=== PATIENT | male | born 1995 | race Caucasian/White ===

== ENCOUNTER 2023-04-04 21:27 | Emergency (ER) | payer OTHER, SELFPAY ==
[2023-04-04] VITALS (7 sets, daily range): BP systolic 123–158; BP diastolic 65–116; PULSE 77–93; RESP 15–30; TEMP 36.6; O2SAT 96–100; BMI 30.4
--- NOTE | 2023-04-04 22:02 | EDS_ITS ---
HPI History of Present Illness Chief Complaint: Lower Extremity Injury PFSH PFS Medical History no medical history Home Medications oxycodone 5 mg capsule 5 mg PO Q6H PRN pain 7 days #28 caps 04/04/23 [Rx Last Taken Unknown] Allergy/AdvReac Type Severity Reaction Status Date / Time No Known Allergies Allergy Verified 04/04/23 21:33 Surgical History no surgical history Social History Smoking Status: Never smoker EXAM Physical Exam Const Vital Signs: 04/04/23 21:30 04/04/23 22:37 04/04/23 22:55 Temperature 97.8 F Temperature Source Temporal Pulse Rate 93 77 Pulse Rate [1 (Initial Baseline)] 77 Pulse Rate [2] 87 Pulse Rate [3] 81 Respiratory Rate 18 16 Respiratory Rate [1 (Initial Baseline)] 20 H Respiratory Rate [2] 30 H Respiratory Rate [3] 20 H Blood Pressure 123/112 H 138/104 H Blood Pressure [1 (Initial Baseline)] 158/109 H Blood Pressure [2] 157/116 H Blood Pressure [3] 146/112 H Blood Pressure Mean 115 Pulse Ox 96 98 Oxygen Delivery Method Room Air Non-Rebreather Oxygen Delivery Method [1 (Initial Baseline)] Nasal Cannula Oxygen Delivery Method [2] Nasal Cannula Oxygen Delivery Method [3] Nasal Cannula Oxygen Flow Rate (L/min) 15 Oxygen Flow Rate (L/min) [1 (Initial Baseline)] 2 Oxygen Flow Rate (L/min) [2] 2 Oxygen Flow Rate (L/min) [3] 2 04/04/23 23:11 04/04/23 23:16 04/04/23 23:21 Temperature Temperature Source Pulse Rate Pulse Rate [1 (Initial Baseline)] Pulse Rate [2] Pulse Rate [3] Respiratory Rate Respiratory Rate [1 (Initial Baseline)] Respiratory Rate [2] Respiratory Rate [3] Blood Pressure Blood Pressure [1 (Initial Baseline)] Blood Pressure [2] Blood Pressure [3] Blood Pressure Mean Pulse Ox Oxygen Delivery Method Room Air Room Air Room Air Oxygen Delivery Method [1 (Initial Baseline)] Oxygen Delivery Method [2] Oxygen Delivery Method [3] Oxygen Flow Rate (L/min) Oxygen Flow Rate (L/min) [1 (Initial Baseline)] Oxygen Flow Rate (L/min) [2] Oxygen Flow Rate (L/min) [3] MDM MDM MDM Narrative Medical decision making narrative: HISTORY OF PRESENT ILLNESS: 27-year-old male here with right leg injury. Patient statesConcern for allergic reaction he was playing basketball. Notes he jumped and land on someone's foot. Injuring his right leg. REVIEW OF SYSTEMS: Pertinent positives: Right leg pain Pertinent negatives: Numbness tingling, loss of sensation PHYSICAL EXAM: Nursing triage notes reviewed, Vital signs reviewed Constitutional: please see mdm HENT: MMM Eyes: Pupils equal round and reactive to light, Extraocular muscles intact Neck: No stridor, no JVD, full neck ROM Lungs: Clear to auscultation, No wheezing or rales. No increased work of breathing, no conversational dyspnea, no accessory muscle use, no nasal flaring. No respiratory distress noted Heart: Regular rate and rhythm, No murmurs, No rubs and No gallops, 2+ distal pulses (radial, femoral, posterior tibial) in all extremities Abdomen: Soft, there is no tenderness, rigidity, rebound or guarding, no obvious peritoneal signs, no palpable pulsatile abdominal masses, no auscultated abdominal bruit : No CVAT Extremities: Obvious deformity to the midshaft of the right tibia, there is no obvious open fracture, no bony fragments, Neuro: Intact sensation L1-S1 dermatomal distributions. Intact 5/5 strength in hip flexion (T12-L3). Knee extension (L2-L4). Ankle dorsiflexion (L4-L5). Ankle plantar flexion (S1). Great toe extension (L5). 2+ patellar and Achilles DTRs. Skin: No obvious open fracture MEDICAL DECISION MAKING: Chief Complaint: Right leg pain External records reviewed: No recent [facility] imaging of the involved extremity Factors affecting care: none Social determinants of health: none History obtained from others: none Consults: none [facility] Narrative: The patient was hemodynamically stable, afebrile, nontoxic-appearing. Right lower extremity is neurovascular intact with no signs of vascular compromise. There were no signs of open fracture. I considered the following differential diagnosis: Tib-fib fracture dislocation ALL IMAGES (IF OBTAINED) HAVE BEEN PERSONALLY REVIEWED AND INTERPRETED BY MYSELF. X-ray of the patient's right lower extremity was read and reviewed myself shows obvious tib-fib fracture with significant displacement and angulation. Procedural sedation, fracture reduction procedure note: The procedure was performed by myself. Intra-Service Time: 30 minutes Indication: Completion of a potentially painful procedure. Pre-sedation Evaluation: Patient was evaluated at 10:45 PM, ASA class I, Mallampati score of 1 Patient is an appropriate candidate for procedural sedation. The risks of sedation were discussed with the patient and/or legal guardian. A time out was completed. The patient was reevaluated immediately prior to initiation of sedation. IV access established. Normal saline bolus was given, Zofran was given. The patient was sedated with propofol, 1 mg/kg or 120 mg The patient was monitored with continuous pulse oximetry, traffic monitor specialist, and capnography. The patient protected their airway well, with vital signs remaining stable throughout the duration of the procedure. There were no complications and no significant hypoxemia. I remained at the bedside for the sedation. I provided 30 minutes of intra-service time. Post sedation evaluation (11:15pm) : Patient was alert and cooperative, hemodynamically stable with appropriate respiratory status, temperature and pain control without ongoing nausea and vomiting. Strict return precautions were discussed in terms of compartment syndrome including increasing pain, pallor, pulselessness, poikilothermia, paresthesias, paralysis. Patient was ordered to be nonweightbearing. Crutches were provided. Close Orthopedic follow-up arranged. The patient and/or family, caregivers express understanding. The patient and/or family, caregivers agrees with the plan. Shared decision making: I will have a discussion with the patient and or visitors regarding risk/benefits of further testing or admission. They will be made aware of of the risk/benefits inherent in this decision they will be given the opportunity to voice understanding. Total critical care time today provided was at least 0 minutes. This excludes separately billable procedures. Critical care time (if documented) is secondary to the patient having high probability of clinically significant/life threatening deterioration in the patient's condition which required my urgent intervention. Impression: 1. Right tib-fib fracture Dispo: Discharge Radiography Diagnostic Testing: Clinical Impression(s) from Imaging Studies Tibia/Fibula X-Ray 04/04/23 22:24 IMPRESSION: Displaced fractures involving the distal tibial and fibular shafts as described. Electronically Signed: Roxanne Lynch MD at 22:43 EDT , Discharge Plan Triage Chief Complaint: Lower Extremity Injury ED Provider: Conrado De La Rosa Dx/Rx/DC Orders Instructions: ED Fracture, Lower Extremity Prescriptions: New oxycodone 5 mg capsule 5 mg PO Q6H PRN (Reason: pain) 7 Days Qty: 28 0RF Stand Alone Forms: ED Work / School Excuse Primary Care Provider: Ray Sifuentes Referrals: Andrew Dobson MD [Med Staff - Active Staff] - Activity Restrictions/Additional Instructions: Thank you for trusting us with your care today! Please take Tylenol (2 pills, 650 mg), ibuprofen (2 pills, 400 mg) every 6 hours as needed for pain and fever control. If this does not control your pain. Please take oxycodone as prescribed. Please look out for signs of increasing pain, discoloration, coolness to touch, difficulty moving, numbness or tingling as these are signs of increased compartment pressure will require you to return to the emergency department immediately. Please return to the emergency department if your symptoms change or worsen. Specifically if you develop increasing pain or decreased sensation or decreased ability to move. Please follow with your orthopedic surgery for further outpatient evaluation and management. Disposition Disposition: Home, Self Care
--- NOTE | 2023-04-04 22:24 | RAD_ITS ---
STUDY: X-RAY - RIGHT TIBIA AND FIBULA REASON FOR EXAM: Male, 27 years old. leg pain, deformity, LANDED WRONG DURING BASKETBALL TECHNIQUE: 2 view(s) of the tibia and fibula were obtained. COMPARISON: None. FINDINGS: There is a complex comminuted fractures involving the distal tibial shaft with at least 1.3 cm separation along the major fragments. There is a second fracture involving the distal fibular shaft with overlap and angulation. Soft tissue swelling of the distal calf. RAD/Tibia & Fibula 2 Views IMPRESSION: Displaced fractures involving the distal tibial and fibular shafts as described. Electronically Signed: Roxanne Lynch MD at 22:43 EDT ,
[2023-04-04] MEDS: Ketorolac 15 MG/ML Vial IV (22:31)
[2023-04-04] MEDS: Morphine 4 MG/ML Syringe IV (22:32)
[2023-04-04] MEDS: Ondansetron 4 MG/2 ML Vial IV (22:47)
[2023-04-04] MEDS: Propofol 200 MG/20 ML Vial 120 MG IV BOLUS (22:47)
[2023-04-04] MEDS: 0.9% Normal Saline (1000mL) 1,000 ML 999 ML IV (22:47)
== END 2023-04-05 00:10 | disposition home or self-care (01) ==
PROVIDERS: Emergency Provider Emergency Medicine; PCP Family Medicine; Visit Provider Emergency Medicine
DX: S82.201A Unspecified fracture of shaft of right tibia, initial encounter for closed fracture (principal); T78.40XA Allergy, unspecified, initial encounter; S82.409A Unspecified fracture of shaft of unspecified fibula, initial encounter for closed fracture; Y93.67 Activity, basketball; W51.XXXA Accidental striking against or bumped into by another person, initial encounter
CPT/HCPCS: 73590; 96361; 96374; 96375; 99152; 99285; A4216; J2405